=== PATIENT | female | born 1990 | race Caucasian/White ===

== ENCOUNTER 2016-08-01 13:02 | Emergency (ER) | payer MEDICAID ==
[2016-08-01 13:03] VITALS: BMI 24.0
--- NOTE | 2016-08-01 13:53 | C.PDOC ---
History Of Present Illness 24 year old patient presents to the ED complaining of a laceration to her left tragus. Patient is unsure when the laceration occurred. She notes there was mild bleeding last night which was controlled. Patient denies fever or any other complaints. Time Seen by Provider: 08/01/16 13:14 Chief Complaint (Nursing): Abnormal Skin Integrity History Per: Patient History/Exam Limitations: no limitations Onset/Duration Of Symptoms: Unknown Current Symptoms Are (Timing): Still Present Quality Of Symptoms: Painful Severity: Mild Pain Scale Rating Of: 3 Recent travel outside of the [place]: No Past Medical History Reviewed: Historical Data, Nursing Documentation, Vital Signs - Medical History PMH: Hypothyroidism Surgical History: Appendectomy Family History: States: Unknown Family Hx - Social History Hx Alcohol Use: No Hx Substance Use: No - Immunization History Hx Influenza Vaccination: Yes Hx Pneumococcal Vaccination: No Review Of Systems Except As Marked, All Systems Reviewed And Found Negative. Constitutional: Negative for: Fever Skin: Positive for: Other (laceration to left tragus) Physical Exam - Physical Exam Appears: Non-toxic, No Acute Distress Skin: Warm, Dry Head: Atraumatic, Normacephalic Eye(s): bilateral: Normal Inspection Ear(s): Left: Other (well healed horizontal laceration to the left tragus (-) active bleeding (-)appreciable open wound), Bilateral: Normal Neck: Normal ROM, Supple Cardiovascular: Rhythm Regular Respiratory: Normal Breath Sounds, No Rales, No Rhonchi, No Wheezing Back: Normal Inspection Extremity: Bilateral: Atraumatic Neurological/Psych: Oriented x3, Normal Speech, Normal Cognition Gait: Steady ED Course And Treatment Progress Note: Patient was instructed to follow up with PMD for a referral for a plastic surgeon. Disposition - Disposition Referrals: [facility] Chrissy Crowell, [Non-Staff] - Disposition: HOME/ ROUTINE Disposition Time: 13:49 Condition: GOOD Additional Instructions: Thank you for letting us take care of you today. Your provider was Dr. Durbin. The emergency medical care you received today was directed at your acute symptoms. If you were prescribed any medication, please fill it and take as directed. It may take several days for your symptoms to resolve. Return to the Emergency Department if your symptoms worsen, do not improve, or if you have any other problems. Please contact your doctor or call one of the physicians/clinics you have been referred to that are listed on the Patient Visit Information form that is included in your discharge packet. Bring any paperwork you were given at discharge with you along with any medications you are taking to your follow up visit. Our treatment cannot replace ongoing medical care by a primary care provider (PCP) outside of the emergency department. Thank you for allowing the [facility] team to be part of your care today. Call your doctor tomorrow for a plastic surgery consult for your ear. The wound has closed and cannot be sutured here in the emergency room without high risk of infection. - Clinical Impression Clinical Impression: Laceration of ear - Scribe Statement The provider has reviewed the documentation as recorded by the Scribe Nisreen Friedman Provider Attestation: All medical record entries made by the Scribe were at my direction and personally dictated by me. I have reviewed the chart and agree that the record accurately reflects my personal performance of the history, physical exam, medical decision making, and the department course for this patient. I have also personally directed, reviewed, and agree with the discharge instructions and disposition.
== END 2016-08-01 13:49 | disposition home or self-care (01) ==
LOC: C.ER 13:02
DX: S01.312A Laceration without foreign body of left ear, initial encounter (principal); X58.XXXA Exposure to other specified factors, initial encounter

== ENCOUNTER 2016-12-25 11:05 | Emergency (ER) | payer MEDICAID, OTHER ==
[2016-12-25 11:06] VITALS: BMI 24.0
[2016-12-25 11:22] VITALS: RESP 18
[2016-12-25] MEDS ORDERED: Albuterol 0.083% Inhal Sol (2.5 mg/3 mL) UD IH STA (12:20)
--- NOTE | 2016-12-25 12:23 | C.PDOC ---
History Of Present Illness 26 yr old female with PMHx of thyroid ds ( on medication unable to recall, reports no change in dose), presents to the ER for evaluation of chest tightness associated with facial swelling, eye redness developed last night "after cleaning the house". Patient states she was unable to sleep last night due to a dry cough. Patient sts, took " allergy pills last nigh with some improvement in facial swelling and eyes redness". Patient reports of similar symptoms in the past "which started after cleaning the house". Otherwise, Patient denies fever, chills, headache, dizziness, vision changes, throat tightness, throat swelling, drooling, dysphagia, dyspnea, CP, wheezing, palpitation, abd. pain, N/V/D, rash, denies calf pain or any other active complaints. No risk factors for DVT or PE. Ambulate to Ed for evaluation, not in nay apparent distress. Time Seen by Provider: 12/25/16 12:18 Chief Complaint (Nursing): Medical Clearance History Per: Patient History/Exam Limitations: no limitations Onset/Duration Of Symptoms: Days (Last night) Current Symptoms Are (Timing): Still Present Past Medical History Reviewed: Historical Data, Nursing Documentation, Vital Signs Vital Signs: Last Vital Signs Temp 98 F 12/25/16 16:49 Pulse 100 H 12/25/16 16:49 Resp 18 12/25/16 16:49 BP 100/64 12/25/16 16:49 Pulse Ox 95 12/25/16 16:49 - Medical History PMH: Hypothyroidism Surgical History: Appendectomy Family History: States: No Known Family Hx - Social History Hx Alcohol Use: No Hx Substance Use: No - Immunization History Hx Influenza Vaccination: Yes Hx Pneumococcal Vaccination: No Review Of Systems Except As Marked, All Systems Reviewed And Found Negative. Constitutional: Positive for: Other ((+) Facial swelling.). Negative for: Fever , Chills Eyes: Negative for: Vision Change ENT: Negative for: Throat Pain, Throat Swelling Cardiovascular: Positive for: Other ((+) Chest tightness.) Respiratory: Positive for: Cough (Dry). Negative for: Shortness of Breath, Wheezing Neurological: Negative for: Weakness, Numbness, Headache, Dizziness Physical Exam - Physical Exam Appears: Non-toxic, No Acute Distress Skin: Warm, Dry, No Rash Head: Atraumatic, Normacephalic Eye(s): bilateral: Normal Inspection, PERRL, EOMI Ear(s): Bilateral: Normal Oral Mucosa: Moist, No Drooling, No Trismus Chest: Symmetrical, No Tenderness Cardiovascular: Rhythm Regular, No Murmur Respiratory: No Rales, No Rhonchi, Wheezing (Scattered right base wheezing.) Extremity: Normal ROM, No Swelling Neurological/Psych: Oriented x3, Normal Speech, Normal Motor ED Course And Treatment - Laboratory Results Result Diagrams: 12/25/16 14:40 12/25/16 14:40 Lab Interpretation: Normal ECG: Interpreted By Me, Viewed By Me (and ED attending) ECG Interpretation: Abnormal Interpretation Of ECG: SR@91/min, NADm 1st degree AVB, occasional PVDs, prolong QT, T wave inversion in III, AVF, V2-V3, no acute ST-T changes. NO old EKG available to compare. O2 Sat by Pulse Oximetry: 97 (RA) Pulse Ox Interpretation: Normal - Radiology CXR: Interpreted by Me, Viewed By Me, Read By Radiologist CXR Interpretation: Yes: Infiltrates (RML) Progress Note: On re-evaluation, pt remained stable, not n any apparent distress. Pt reports, mild improvement in sx after ED tx " my chest feels better, not as tight anymore". Afebrile, hemodynamicaly stable. PUlsEOx 99% RA. ENT: no acute findings. Uvula midline, no edema. Lungs: CTA B/L, BS equal B/L. CVS: (+)S1S2, reg. ABd: benign, (-) guarding, (-) rebound. Neuorlogicaly intact. Case discussed with ED attending DR. Adame, EKG and CXR review appear abnoraml. Blood work review and appears normal. As per , pt is stable for discharge now and outpt f/u. Results were review and discussed with pt. Ref. to F/uw ith PMD, Card, chair car attendant, Pulm in 1-2 days for re-eavl. return to ED at any time if any worsening or new changes. 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 RETURN TO ED IF ANY WORSENING OR NEW CHANGES. Prescriptions: Albuterol HFA [Ventolin HFA 90 mcg/actuation (8 g)] 1 puff IH Q6 #1 inhaler Cefdinir [Omnicef] 300 mg PO BID #14 cap DiphenhydrAMINE [Benadryl] 25 mg PO BID #10 cap Famotidine [Pepcid] 20 mg PO BID #10 tab Prednisone [Deltasone] 40 mg PO DAILY #6 tablet Instructions: Viral Pneumonia (ED), Dyspnea (ED) Forms: [employer] (Macedonian), Work Excuse - Clinical Impression Clinical Impression: Shortness of breath, Pneumonia - PA / FAMILY SERVICES ASSISTANT / Resident Statement MD/DO has reviewed & agrees with the documentation as recorded. - Scribe Statement The provider has reviewed the documentation as recorded by the Scribe Aziza Lyman All medical record entries made by the Scribe were at my direction and personally dictated by me. I have reviewed the chart and agree that the record accurately reflects my personal performance of the history, physical exam, medical decision making, and the department course for this patient. I have also personally directed, reviewed, and agree with the discharge instructions and disposition.
[2016-12-25 13:07] LABS: RBC URINE 6 /hpf (0-3); URINE BACTERIA RARE (<OCC); URINE BILIRUBIN NEGATIVE (NEGATIVE); URINE BLOOD 2+ (NEGATIVE); URINE COLOR Straw (YELLOW); URINE GLUCOSE (UA) NORMAL (Normal); URINE KETONE NEGATIVE (NEGATIVE); URINE LEUKOCYTE ESTERASE 1+ Leu/uL (Negative); URINE PROTEIN NEGATIVE (NEGATIVE); URINE UROBILINOGEN NORMAL mg/dL (0.2-1.0); WBC URINE 5 /hpf (0-5)
--- NOTE | 2016-12-25 13:54 | RAD ---
HISTORY: Cough COMPARISON: None available. TECHNIQUE: Chest PA and lateral FINDINGS: LUNGS: Mild patchy opacity at the medial right lung base. PLEURA: No significant pleural effusion identified. No definite pneumothorax . CARDIOVASCULAR: The cardiothymic silhouette appears unremarkable. OSSEOUS STRUCTURES: Skeletally immature patient. No acute osseous abnormality identified. VISUALIZED UPPER ABDOMEN: Unremarkable. OTHER FINDINGS: None. IMPRESSION: Mild patchy opacity at the medial right lung base favored to reflect atelectasis. Small infiltrate cannot be excluded in the proper clinical setting. Study marked for PA review.
[2016-12-25 14:46] LABS: BASO % 0.4 % (0.0-2.0); EOS # 0.4 K/uL (0.0-0.7); EOS % 3.7 % (0.0-4.0); HEMATOCRIT 42.8 % (34.0-47.0); LYMPH # 2.8 K/uL (1.0-4.3); MEAN CELL VOLUME 85.1 fL (81.0-99.0); MEAN CORPUSCULAR HGB CONC 34.1 g/dL (33.0-37.0); MEAN PLATELET VOLUME 8.9 fL (7.2-11.7); MONO # 0.4 K/uL (0.0-0.8); MONO % 4.2 % (0.0-10.0); RED CELL DISTRIBUTION WIDTH 13.3 % (11.5-14.5); WHITE BLOOD COUNT 9.5 K/uL (4.8-10.8)
[2016-12-25 14:52] LABS: CHLORIDE 100 mmol/L (98-107); POTASSIUM 3.9 mmol/L (3.6-5.2); SODIUM 135 mmol/L (132-148)
[2016-12-25 14:55] LABS: BLOOD UREA NITROGEN 8 mg/dL (7-17); CARBON DIOXIDE 24 mmol/L (22-30); GFR AFRICAN-AMERICAN > 60; GLUCOSE,RANDOM 91 mg/dL (65-105)
[2016-12-25 14:56] LABS: CALCIUM 9.2 mg/dl (8.6-10.4); INR 1.1; PARTIAL THROMBOPLASTIN TIME 34 SECONDS (21-34)
[2016-12-25] MEDS ORDERED: cefTRIAXone IV 1 gm in Dextros 50 ML IVPB ONE (15:28)
[2016-12-25 16:51] VITALS: BP 100/64; PULSE 100; TEMP 98
[2016-12-25 18:54] VITALS: O2SAT 97
--- NOTE | 2016-12-26 09:32 | RAD ---
HISTORY: Cough COMPARISON: None available. TECHNIQUE: Chest PA and lateral FINDINGS: LUNGS: Mild patchy opacity in the medial right lung base may reflect atelectasis or infiltrate. No focal consolidation. Please note that chest x-ray has limited sensitivity for the detection of pulmonary masses. PLEURA: No significant pleural effusion identified. No definite pneumothorax . CARDIOVASCULAR: Heart size appears within normal limits. OSSEOUS STRUCTURES: No acute osseous abnormality identified. VISUALIZED UPPER ABDOMEN: Unremarkable. OTHER FINDINGS: None. IMPRESSION: Mild patchy opacity in the medial right lung base may reflect atelectasis or infiltrate.
--- NOTE | 2016-12-26 12:10 | CARD ---
APPROVED REPORT EKG Measurement Heart [id number] <Conclusion> Sinus rhythm with 1st degree AV block with occasional premature ventricular complexes T wave abnormality, consider anterior ischemia Prolonged QT Abnormal ECG
== END 2016-12-25 16:51 | disposition home or self-care (01) ==
LOC: C.ER 11:05
DX: J18.9 Pneumonia, unspecified organism (principal); R06.02 Shortness of breath; E03.9 Hypothyroidism, unspecified
CPT/HCPCS: 71020; 80048; 81001; 83880; 84484; 85025; 85378; 85610; 85730; 93005; 94640; 96365; 99282; J0696